=== PATIENT | male | born 1940 | race Caucasian/White ===

== ENCOUNTER 2017-09-20 17:09 | Inpatient (IN) | payer MEDICARE, OTHER ==
[2017-09-20] MEDS ORDERED: ALUMINUM & MAGNESIUM HYDROXIDE 30 ML UD PO ONE ×2 (17:33→20:53)
[2017-09-20] MEDS ORDERED: ASPIRIN TABLET 325 MG TAB PO ONE (17:33)
[2017-09-20] MEDS ORDERED: PANTOPRAZOLE SODIUM IV 40 MG VIAL IV ONE (17:33)
--- NOTE | 2017-09-20 18:02 | RAD ---
EXAM DESCRIPTION: Abdomen Series CLINICAL HISTORY:77 years Male, chest pain Comparison: None FINDINGS: Minimal subsegmental atelectasis or scarring at the left lung base. No focal consolidation. No pleural effusion. No pneumothorax. Cardiac and mediastinal silhouette is unremarkable. No acute osseous abnormality. Soft tissues are unremarkable. Nonobstructive bowel gas pattern. No evidence of free air. IMPRESSION: Minimal subsegmental atelectasis or scarring at left lung base. No focal lung consolidation. Moderate colonic stool. Nonobstructive bowel gas pattern. Electronically signed by: Idris Rubio MD 09/20/2017 6:01 PM CDT
[2017-09-20] MEDS ORDERED: ALUM & MAG HYDROX-SIMETHICONE 30 ML, LIDOCAINE VISCOUS 2% 15 ML PO ONE ×2 (18:20)
[2017-09-20] MEDS ORDERED: LIDOCAINE HCL 2% (MOUTH-THROAT) 15 ML UD ONE ×2 (18:28→18:36)
[2017-09-20] MEDS ORDERED: ALUM & MAG HYDROX-SIMETHICONE 30 ML UD ONE (18:28)
[2017-09-20] MEDS ORDERED: NITROGLYCERIN 0.4 MG 25 EA TAB SL ONE (19:07)
[2017-09-20] MEDS ORDERED: ONDANSETRON INJ 4 MG/2 ML VIAL ONE (19:20)
[2017-09-20] MEDS ORDERED: ONDANSETRON INJ 4 MG/2 ML VIAL IV ONE (19:26)
[2017-09-20] MEDS ORDERED: SODIUM CHLORIDE 0.9% 1000ML 1,000 ML IVS ONE (20:16)
[2017-09-20] MEDS ORDERED: FAMOTIDINE 20 MG TAB PO ONE (20:53)
--- NOTE | 2017-09-20 21:11 | ED.PDOC ---
History of Present Illness - General Chief Complaint: Chest Pain/MS Stated Complaint: chest pain Time Seen by Provider: 09/20/17 17:31 Source: patient Exam Limitations: no limitations - History of Present Illness Initial Comments: the patient is 77-year-old male presenting to the emergency room secondary to the onset of substernal chest pain with radiation down towards the epigastric area. It started approximately an hour prior to arrival. He has had one or 2 episodes in the last week that are similar but this one lasted longer solution to the emergency room. No history of any cardiac problems though he does have hypertension and hypercholesterolemia and he is obese. He has never had any real cardiac stress testing. After the patient was here for about 3 hours I found out the additional information that the patient had been hospitalized 6 or 7 months ago for a severe Salmonella infection. He does not really remember much of the details of that infection was or what form of Salmonella it was or what all it effected but he was in the ICU for an extended period of time. he does not have shortness of breath. It is not worse with any movement. He was initially not nauseated. By the time the patient arrived here the chest pain had resolved. It did recur about 2 hours later and was relieved by throwing up.there was no blood in the vomitus. He has not had any history of any ulcers in the past but he does have a history of reflux. Timing/Duration: 1 hour Severity: moderate Improving Factors: nothing Worsening Factors: nothing Associated Symptoms: chest pain, loss of appetite, malaise, nausea/vomiting Allergies/Adverse Reactions: Allergies NO KNOWN ALLERGY Allergy (Verified 09/20/17 17:15) Review of Systems - Review of Systems Constitutional: States: malaise EENTM: States: no symptoms reported Respiratory: States: no symptoms reported Cardiology: States: chest pain Gastrointestinal/Abdominal: States: abdominal pain, nausea Genitourinary: States: no symptoms reported Musculoskeletal: States: no symptoms reported Skin: States: no symptoms reported Neurological: States: no symptoms reported Endocrine: States: no symptoms reported All other Systems: No Change from Baseline Past Medical History (General) - Patient Medical History Hx Stroke: No Hx of COPD: No Hx Congestive Heart Failure: No Hx Hypertension: Yes Hx Diabetes: No Hx Gastroesophageal Reflux: - divertiulosis Surgical History: other Family Medical History - Family History Father Family History: No Known Physical Exam - Physical Exam General Appearance: Alert, Comfortable, No apparent distress Eye Exam: bilateral normal Ears, Nose, Throat: hearing grossly normal, normal ENT inspection, normal pharynx Neck: full range of motion, supple, normal inspection Respiratory: lungs clear, normal breath sounds, no respiratory distress, no accessory muscle use Cardiovascular/Chest: normal peripheral pulses, regular rate, rhythm, no edema Peripheral Pulses: radial,right: 2+, radial,left: 2+, dorsalis pedis,right: 2+, dorsalis pedis,left: 2+ Gastrointestinal/Abdominal: soft, other - mild epigastric to right upper quadrant discomfort palpation. Rectal Exam: deferred Back Exam: normal inspection, no CVA tenderness, no vertebral tenderness Extremity: normal range of motion, non-tender, normal inspection, no pedal edema , normal capillary refill Neurologic: inductor tester II-XII nml as tested, alert, normal mood/affect, oriented x 3 Skin Exam: normal color Comments: Vital Signs - 24 hr 09/20/17 09/20/17 09/20/17 17:10 18:20 19:10 Temperature 98.6 F Pulse Rate 69 Pulse Rate [ 73 69 68 left brachial] Respiratory 16 18 20 Rate Blood Pressure 144/88 122/83 119/80 [right brachial ] O2 Sat by Pulse 96 97 Oximetry 09/20/17 09/20/17 09/20/17 19:27 19:58 20:10 Temperature Pulse Rate Pulse Rate [ 86 68 70 left brachial] Respiratory 20 14 16 Rate Blood Pressure 114/64 98/64 103/68 [right brachial ] O2 Sat by Pulse 94 L 93 L 94 L Oximetry 09/20/17 21:10 Temperature Pulse Rate Pulse Rate [ 72 left brachial] Respiratory 18 Rate Blood Pressure 126/77 [right brachial ] O2 Sat by Pulse 98 Oximetry Progress - Progress Progress: 09/20/17 21:13 the patient is a 77-year-old male presented to emergency room secondary to substernal chest and epigastric pain. The patient does have risk factors for coronary disease and will be placed in the hospital for a more extended rule out with the first 2 sets of cardiac enzymes being essentially negative. With more observation, this is looking less likely a cardiac source. he did receive an aspirin upon arrival. He does appear to be having acute gastritis and duodenitis occurring. This may be viral in origin, her chronic with a current flare, however given his recent history of a significant salmonella infection, he does bear watching from this standpoint overnight as well. We will plan on doing a blood culture with next set of cardiac enzymes. If his symptoms continue then stool studies may be warranted and we may need to obtain records from his previous treating facility as to what form of salmonella he had and what all sites it had affected at the time to determine further management. For now the patient does not look septic. no antibiotics are being started. He is receiving a small fluid bolus. He is resting comfortably. He has received a dose of Carafate, Protonix and famotidine. He did require 1 dose of Zofran here in the emergency room. Telemetry monitoring has shown no significant arrhythmia. His vital signs are stable. Admitted for further management. - Results/Orders Results/Orders: acute abdominal series fails show any acute pathology. There is some constipation. Initial EKG an EKG repeated while the patient was having chest pain essentially looked the same. Motor normal sinus rhythm. There is some left axis deviation. No acute ST segment changes concerning for ischemia. Corrected QT interval is still within normal limits. Laboratory Tests 09/20/17 09/20/17 09/20/17 17:20 17:20 17:20 WBC 7.3 RBC 4.38 L Hgb 13.6 L Hct 38.9 L MCV 88.8 MCH 31.0 MCHC 35.0 RDW 13.4 Plt Count 292 MPV 8.0 Absolute Neuts (auto) 4.30 Absolute Lymphs (auto) 2.20 Absolute Monos (auto) 0.50 Absolute Eos (auto) 0.30 Absolute Basos (auto) 0.10 Neutrophils % 58.8 Lymphocytes % 29.8 Monocytes % 6.9 Eosinophils % 3.6 Basophils % 0.9 PT 11.6 INR 1.000 PTT (SP) 31.4 D-Dimer, Quantitative 102 Sodium 142 Potassium 4.1 Chloride 106 Carbon Dioxide 27 Anion Gap 13.1 BUN 20 H Creatinine 0.93 BUN/Creatinine Ratio 21.5 H Random Glucose 117 H Serum Osmolality 286.8 Calcium 9.5 Magnesium Total Bilirubin 0.5 AST 34 ALT 29 Alkaline Phosphatase 56 Creatine Kinase 152 CK-MB (CK-2) 3.3 CK-MB (CK-2) % Not Reportable Troponin I < 0.02 B-Natriuretic Peptide 81.6 Serum Total Protein 7.5 Albumin 4.6 Globulin 2.9 Albumin/Globulin Ratio 1.6 Amylase 77 Lipase Urine Color Urine Appearance Urine pH Ur Specific [place] Urine Protein Urine Glucose (UA) Urine Ketones Urine Blood Urine Nitrite Urine Bilirubin Urine Urobilinogen Ur Leukocyte Esterase Urine RBC Urine WBC Ur Epithelial Cells Amorphous Sediment Urine Bacteria 09/20/17 09/20/17 09/20/17 17:20 18:08 19:38 WBC RBC Hgb Hct MCV MCH MCHC RDW Plt Count MPV Absolute Neuts (auto) Absolute Lymphs (auto) Absolute Monos (auto) Absolute Eos (auto) Absolute Basos (auto) Neutrophils % Lymphocytes % Monocytes % Eosinophils % Basophils % PT INR PTT (SP) D-Dimer, Quantitative Sodium Potassium Chloride Carbon Dioxide Anion Gap BUN Creatinine BUN/Creatinine Ratio Random Glucose Serum Osmolality Calcium Magnesium 2.0 Total Bilirubin AST ALT Alkaline Phosphatase Creatine Kinase 137 CK-MB (CK-2) 3.2 CK-MB (CK-2) % Not Reportable Troponin I 0.01 B-Natriuretic Peptide Serum Total Protein Albumin Globulin Albumin/Globulin Ratio Amylase Lipase 48 Urine Color Yellow Urine Appearance Clear Urine pH 5.5 Ur Specific [place] 1.025 Urine Protein Negative Urine Glucose (UA) Negative Urine Ketones Negative Urine Blood Negative Urine Nitrite Negative Urine Bilirubin Negative Urine Urobilinogen 0.2 Ur Leukocyte Esterase Negative Urine RBC 0 Urine WBC 0 Ur Epithelial Cells 0-1 Amorphous Sediment 4+ Urine Bacteria 0 09/20/17 19:38 WBC RBC Hgb Hct MCV MCH MCHC RDW Plt Count MPV Absolute Neuts (auto) Absolute Lymphs (auto) Absolute Monos (auto) Absolute Eos (auto) Absolute Basos (auto) Neutrophils % Lymphocytes % Monocytes % Eosinophils % Basophils % PT INR PTT (SP) D-Dimer, Quantitative < 200 Sodium Potassium Chloride Carbon Dioxide Anion Gap BUN Creatinine BUN/Creatinine Ratio Random Glucose Serum Osmolality Calcium Magnesium Total Bilirubin AST ALT Alkaline Phosphatase Creatine Kinase CK-MB (CK-2) CK-MB (CK-2) % Troponin I B-Natriuretic Peptide Serum Total Protein Albumin Globulin Albumin/Globulin Ratio Amylase Lipase Urine Color Urine Appearance Urine pH Ur Specific [place] Urine Protein Urine Glucose (UA) Urine Ketones Urine Blood Urine Nitrite Urine Bilirubin Urine Urobilinogen Ur Leukocyte Esterase Urine RBC Urine WBC Ur Epithelial Cells Amorphous Sediment Urine Bacteria Departure - Departure Clinical Impression: Vomiting Qualifiers: Vomiting type: unspecified Vomiting Intractability: non-intractable Nausea presence: with nausea Qualified Code(s): R11.2 - Nausea with vomiting, unspecified Chest pain Qualifiers: Chest pain type: other chest pain Qualified Code(s): R07.89 - Other chest pain ; R07.8 - Other chest pain Disposition: Admit Patient Decision To Admit - Decistion To Admit Decision to Admit Reason: Medical Nature Decision to Admit Date: 09/20/17 Decision to Admit Time: 21:19
--- NOTE | 2017-09-20 21:31 | HP ---
SUPERVISING PHYSICIAN: Soy Bazzi MD CHIEF COMPLAINT: Chest pain. HISTORY OF PRESENT ILLNESS: This is a 77-year-old male patient who presented to the Emergency Room one hour after the onset of some substernal chest pain. It radiated down to his epigastric area. He has had several episodes of this in the past couple of weeks, but this got to the point where he felt like he needed to come into the Emergency Room. He has no history of any cardiac problems although he does have hyperlipidemia, hypertension and he is obese. The chest pain resolved in the Emergency Room. Later, information was obtained that he has a history of diverticulitis with a colon resection as well as he also had a salmonella infection approximately 9 months ago that he was in ICU for a week due to complications. He just recently moved to [place] from [place]. In the Emergency Room, his vital signs were stable. His WBCs were 7.3 , hemoglobin 13.6, hematocrit 38.9, platelet count 292. D-dimer less than 200 with PT 11.6, INR 1, PT-T 31.4. Electrolytes were basically within normal limits. His first two sets of cardiac enzymes were negative. BNP 81.6. Amylase 77, lipase 48. Liver enzymes were within normal limits. Urinalysis was within normal limits. Abdominal x-ray shows minimal substernal atelectasis or scarring at left lung base and no focal lung consolidation with moderate colonic stool. In the Emergency Room, he was given Maalox, a GI slider, Pepcid , Protonix as well as some fluids. His EKG showed normal sinus rhythm. I was called for admission. PAST MEDICAL HISTORY: 1. Hypertension. 2. Hyperlipidemia. 3. Gastroesophageal reflux disease. 4. Salmonella infection approximately 9 months ago due to eating at a restaurant in [place]. 5. Diverticulitis. PAST SURGICAL HISTORY: 1. Colon resection with 2 feet of colon removed due to diverticulitis. 2. Right ankle surgery. 3. Repair of hernia with mesh x2. OUTPATIENT MEDICATIONS: Awaiting verification in the EMR. ALLERGIES: NO KNOWN DRUG ALLERGIES. FAMILY HISTORY: Negative. SOCIAL HISTORY: He just recently moved to [place] from [place]. PCP in [place], [place], is Dr. Kraft. He is . He denies any tobacco, ETOH or illicit drug use. REVIEW OF SYSTEMS: GENERAL: Negative for fever, fatigue or weight changes. HEENT: Negative for sinus symptoms, ear pain, vision changes or sore throat. RESPIRATORY: Negative for wheezing, coughing or shortness of breath. CARDIAC: Positive for chest pain. Negative for palpitations or tachycardia. GASTROINTESTINAL: Positive for abdominal pain, nausea, vomiting x1 in the Emergency Room. Negative for diarrhea or constipation. GENITOURINARY: Negative for hematuria, dysuria or polyuria. MUSCULOSKELETAL: Negative for back pain, arthralgias, myalgias. NEUROLOGIC: Negative for headache, dizziness or seizures. SKIN: Negative for rashes or lesions. PHYSICAL EXAMINATION: VITAL SIGNS: Temperature 98.6. Heart rate 72. Blood pressure 126/77. Respiratory rate 18. O2 saturation 93% on 2 liters nasal cannula. GENERAL: This is a 77-year-old male lying in his hospital bed. He is no acute distress. HEENT: Normocephalic, atraumatic. Pupils are equal and reactive. Oropharynx is clear. NECK: Supple without mass. RESPIRATORY: Essentially clear to auscultation bilaterally. CHEST: There is equal rise and fall of the chest with inspiration and expiration. CARDIOVASCULAR: Regular rate and rhythm. Sinus rhythm on the client development consultant. GASTROINTESTINAL: Abdomen is soft, nondistended. Very mildly tender to the epigastric to right upper quadrant. Bowel sounds are positive. EXTREMITIES: No cyanosis, clubbing or edema. NEUROLOGIC: Awake, alert and oriented times three. Cranial nerves II-XII are grossly intact. SKIN: Warm and dry. LABORATORY: Labs and films are as per history of present illness. IMPRESSION: 1. Chest pain, rule out myocardial infarction. 2. Gastritis. 3. History of salmonella infection approximately 9 months ago. 4. Hyperlipidemia. 5. Gastroesophageal reflux disease. PLAN: We will place the patient in observation. I have initiated the chest pain guidelines. We will have a proton pump inhibitor for ulcer prophylaxis, Lovenox for DVT prophylaxis, Zofran as an antiemetic. With his next set of cardiac enzymes, I will draw salmonella titer as well as some blood cultures. He will be unable to get a local primary care physician until after the first of the year due to his insurance, but he has agreed to see one of our local physicians as a close followup to his hospital stay. We will continue to monitor the patient closely and follow as needed. Dr. Bazzi is the collaborating physician and available for consultation. #[id number] [facility]
[2017-09-20] MEDS ORDERED: ACETAMINOPHEN 325 MG TAB PO PRN (21:51)
[2017-09-20] MEDS ORDERED: MORPHINE SULFATE INJ 10 MG/ML VIAL IV PRN (21:51)
[2017-09-20] MEDS ORDERED: SODIUM CHLORIDE 0.9% (FLUSH) 10 ML SYG IV PRN (21:51)
[2017-09-20] MEDS ORDERED: NITROGLYCERIN 0.4 MG 25 EA TAB SL PRN (21:51)
[2017-09-20] MEDS ORDERED: ONDANSETRON INJ 4 MG/2 ML VIAL IV PRN (21:56)
[2017-09-20] MEDS: ENOXAPARIN SODIUM 40 MG/0.4 ML SYG SUBCU SCH (23:41)
[2017-09-20] MEDS: IV SET AND CAP CHANGE INJ INJ SCH (23:42)
[2017-09-21] MEDS ORDERED: SODIUM CHLORIDE 0.45% 1000ML 500 ML IVS ONE (01:43)
[2017-09-21] MEDS ORDERED: SODIUM CHLORIDE 0.45% 1000ML 1,000 ML IVS ONE (01:44)
[2017-09-21] MEDS: PANTOPRAZOLE SODIUM IV 40 MG VIAL IV SCH (06:08)
[2017-09-21] MEDS ORDERED: DEXAMETHASONE INJ 10 MG/ML VIAL ONE (07:00)
[2017-09-21] MEDS ORDERED: SODIUM CHLORIDE 0.9% 50 ML VIAL ONE (07:00)
[2017-09-21] MEDS ORDERED: raNITIdine HCL INJ 25 MG/ML VIAL ONE (07:00)
[2017-09-21] MEDS ORDERED: GLYCOPYRROLATE 0.2 MG/ML VIAL ONE (07:00)
[2017-09-21] MEDS ORDERED: METOCLOPRAMIDE HCL INJ 10 MG/2 ML VIAL ONE (07:00)
[2017-09-21] MEDS ORDERED: PROPOFOL 200 MG/20 ML VIAL IV ONE (07:00)
[2017-09-21] MEDS ORDERED: ePHEDrine SULF 50 MG/ML ONE (07:00)
[2017-09-21] MEDS ORDERED: LIDOCAINE 1% 10 ML VIAL INJ ONE (07:00)
[2017-09-21] MEDS: SODIUM CHLORIDE 0.9% (FLUSH) 10 ML SYG IV SCH ×2 (10:04→20:43)
--- NOTE | 2017-09-21 11:31 | PN ---
SUPERVISING PHYSICIAN: Soy Bazzi MD DATE: 09/21/17 SUBJECTIVE: The patient is lying in bed. He is sleeping. He awakens easily. He complains of general malaise and just not feeling well. He has had no nausea , vomiting, diarrhea or chest pain overnight. We discussed his lab results and plan of care. OBJECTIVE: VITAL SIGNS: Afebrile. Heart rate 95. Blood pressure 102/61. Respiratory rate 18. O2 saturation 95% on 2 liters nasal cannula. RESPIRATORY: Essentially clear to auscultation bilaterally. CARDIAC: Regular rate and rhythm. GASTROINTESTINAL: Abdomen is soft, nondistended. Mildly tender to the epigastric and left upper quadrant area. There is no organomegaly. EXTREMITIES: No cyanosis, clubbing or edema. NEUROLOGIC: Awake, alert and oriented times three. LABORATORY: WBC 10.2, but he does have a left shift with neutrophils at 88.8%. Hemoglobin 13, hematocrit 37. Sodium 139, potassium 3.8, chloride 103, carbon dioxide 27, BUN 22, creatinine 0.9. Glucose 136, calcium 8.7. Total bilirubin 2.4 and was 0.5 yesterday. AST 362 and was 34 yesterday. ALT 297 and was 29 yesterday. Alkaline phosphatase is 87. Serial cardiac enzymes were negative. Triglycerides 116, cholesterol 116, LDL 61.3, HDL 34. Salmonella titer is pending. Preliminary blood cultures are negative to date. All other labs and films have been reviewed via the EMR. ASSESSMENT: 1. Chest pain, rule out myocardial infarction. His serial cardiac enzymes have been negative, but he has never had a cardiac workup that includes and echocardiogram or a stress test. 2. Elevated liver function tests. His liver function tests were normal on admission yesterday. 3. Elevated bilirubin of 2.5 with a normal bilirubin yesterday. 4. Gastritis. 5. History of salmonella infection approximately 9 months ago requiring ICU admission. 6. Hyperlipidemia. 7. Gastroesophageal reflux disease. PLAN: We will continue present supportive care. I have made him NPO and ordered an abdominal sonogram today and we will get that report initially to evaluate his elevated liver functions. Depending on the results, we may need further need further testing or a consult with either Dr. Medeiros or GI tomorrow. Also depending on what the sonogram shows, we may need to change him to a full admission. Again, I am quite concerned that we have close followup on this patient as his primary care physician is in [place] and due to his insurance, he will be unable to change to a local primary care physician until after the first of the year. He has agreed to see one of our local physicians as followup and Dr. Bazzi has agreed to see him in clinic for his hospital followup. I have ordered lab for in the morning. We will monitor his cultures and make sure he has a followup appointment with Dr. Bazzi. We will continue to monitor the patient closely and treat appropriately. #[id number] #[id number] [facility]
[2017-09-21] MEDS ORDERED: MAGNESIUM HYDROXIDE 30 ML UD PO ONE (13:00)
--- NOTE | 2017-09-21 14:54 | US ---
EXAM DESCRIPTION: Abdomen sonogram, complete CLINICAL HISTORY: Elevated liver function tests COMPARISON: [None.] FINDINGS: Gallbladder demonstrates multiple 1 cm gallstones layering dependently in the gallbladder. No positive sonographic Garcia sign . Gallbladder wall thickness 3 mm Common bile duct measures 5-6 mm mm in the francesca hepatis. Liver is mildly enlarged measuring 17.3 cm craniocaudal in the midclavicular line. Mild diffuse increased echotexture consistent with fatty infiltration. No focal abnormality. Spleen normal in size and echotexture Pancreas is not well seen. Visualized abdominal aorta and inferior vena cava are normal Right kidney and left kidney are normal in size and echotexture. No hydronephrosis, nephrolithiasis or renal mass lesion IMPRESSION: Mild hepatomegaly and diffuse fatty infiltration. No focal abnormality Gallstones in the gallbladder. No evidence of acute cholecystitis Electronically signed by: Soy Farrar MD 09/21/2017 2:53 PM CDT
[2017-09-21] MEDS ORDERED: levoFLOXacin 500MG IV 100 ML IVPB ONE (16:19)
[2017-09-21] MEDS: LISINOPRIL 10 MG TAB PO SCH (16:25)
[2017-09-21] MEDS: levoFLOXacin 500MG IV 500 MG in PREMIX BAG 1 BAG IVPB SCH (16:26)
[2017-09-21] MEDS: ATORVASTATIN 10 MG TAB PO SCH (20:43)
--- NOTE | 2017-09-21 20:43 | CONS ---
DATE OF CONSULTATION: 09/21/17 HISTORY OF PRESENT ILLNESS: The patient is a 77 year-old male patient who was admitted through the Emergency Room after the onset of substernal chest pain which resolved after taking a Nitroglycerin. He has had no history of cardiac disease but does have hypertension, hyperlipidemia and is obese. He has a previous episode of like episode approximately 4 years ago which was not diagnosed. He was hospitalized with ICU care 9 months ago for Salmonella. He has no history of hepatitis or jaundice in the past. He does not have a history of fatty food intolerance. PAST MEDICAL HISTORY: 1. Hypertension. 2. Hyperlipidemia. 3. Gastroesophageal reflux disease. 4. Salmonella. 5. Diverticulitis. PAST SURGICAL HISTORY: 1. Status post colon resection for diverticulitis. 2. Status post hernia repair with mesh. 3. Right ankle surgery. CURRENT MEDICATIONS: ALLERGIES: NO KNOWN DRUG ALLERGIES. FAMILY HISTORY: Noncontributory. SOCIAL HISTORY: The patient does not use tobacco or alcohol. He is . 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 REVIEW OF SYSTEMS: No fever or chills. No change in bowel habits. Has had no diarrhea or blood per rectum since the Salmonella. Denies problems with voiding and has no history of chest pain. PHYSICAL EXAMINATION: VITAL SIGNS: He is afebrile and normotensive. HEENT: Reveals the sclera to be nonicteric. Mucous membranes are moist. NECK: Without adenopathy. BACK: Without CVA tenderness. CHEST: He has equal breath sounds bilaterally. HEART: Regular rate and rhythm. ABDOMEN: Soft. There is mild tenderness in the right upper quadrant. There is a well healed midline surgical scar. RECTAL: Examination is deferred. EXTREMITIES: Without clubbing, cyanosis or edema. LABORATORY: Elevated liver function tests today with total bilirubin 2.4 with AST and ALT 362 and 297. These were normal at the time of admission. He had a normal amylase and lipase on admission. Potassium is 3.8, creatinine 0.90. Hemoglobin 13, white count 10.2, platelet count 255,000, 88% neutrophils. Coagulation studies are within normal limits. Urinalysis is clear other than a specific gravity of 1.025. He had an ultrasound today which revealed gallstones and a upper limits of normal bile duct without stones, and changes in his liver echogenicity consistent with fatty infiltration. IMPRESSION: 1. Symptomatic cholelithiasis with elevated bilirubin and elevated liver function testing consistent with choledocholithiasis. 2. History of Salmonella. 3. History of hyperlipidemia. 4. Hypertension. 5. Negative cardiac workup. 6. History of mesh implantation. PLAN: To keep the patient NPO. Begin Levaquin. Recheck lab in the morning and if his liver function tests have returned more toward normal or stayed the same, will consider proceeding with cholecystectomy laparoscopically tomorrow with placing the ports above the mesh. The risks, benefits, and alternatives to laparoscopic cholecystectomy were discussed and his questions were answered. #[id number] [facility]
[2017-09-21] MEDS: ENOXAPARIN SODIUM 40 MG/0.4 ML SYG SUBCU SCH (21:12)
[2017-09-22] MEDS: PANTOPRAZOLE SODIUM IV 40 MG VIAL IV SCH (06:00)
[2017-09-22] MEDS: SODIUM CHLORIDE 0.9% (FLUSH) 10 ML SYG IV SCH ×2 (09:41→21:43)
[2017-09-22] MEDS: CITALOPRAM HBR 20 MG TAB PO SCH (09:45)
[2017-09-22] MEDS: LISINOPRIL 10 MG TAB PO SCH (09:45)
[2017-09-22] MEDS ORDERED: MIDAZOLAM INJ 2 MG/2 ML VIAL ONE (11:32)
[2017-09-22] MEDS ORDERED: ROCURONIUM BROMIDE 10 MG/ML VIAL ONE ×2 (11:32→14:11)
[2017-09-22] MEDS ORDERED: fentaNYL CITRATE INJ 50 MCG/ML AMP ONE (11:32)
[2017-09-22] MEDS ORDERED: ELECTROLYTE-A 1,000 ML IVS ONE ×2 (11:42→12:55)
[2017-09-22] MEDS ORDERED: BUPIVACAINE 0.25% W/EPI 50 ML VIAL INJ ONE (11:45)
[2017-09-22] MEDS ORDERED: HEPARIN SODIUM (PORCINE) 10,000 UNITS/ML VIAL ONE (11:45)
[2017-09-22] MEDS ORDERED: HYDROmorphone HCL INJ 2 MG/ML VIAL ONE (13:30)
[2017-09-22] MEDS ORDERED: GLUCAGON INJ 1 MG VIAL ONE (13:52)
[2017-09-22] MEDS ORDERED: SUGAMMADEX SODIUM 200 MG/2 ML VIAL IV ONE (14:11)
[2017-09-22] MEDS ORDERED: HYDROmorphone HCL INJ 2 MG/ML VIAL IV PRN (14:51)
[2017-09-22] MEDS ORDERED: LEVALBUTEROL NEBS 1.25 MG/3 ML VIAL NEB ONE (15:05)
[2017-09-22] MEDS ORDERED: levoFLOXacin 500MG IV 100 ML IVPB ONE (16:02)
[2017-09-22] MEDS ORDERED: ALBUTEROL SULFATE 2.5 MG/3 ML VIAL NEB PRN (16:02)
[2017-09-22] MEDS: ALBUTEROL SULFATE 2.5 MG/3 ML VIAL NEB SCH ×2 (16:10→19:35)
--- NOTE | 2017-09-22 16:13 | RAD ---
EXAM DESCRIPTION: Chest,1 View CLINICAL HISTORY: Low Spo2 s/p op Digna COMPARISON: None available TECHNIQUE: AP portable chest FINDINGS: Minimal scarring or atelectasis is observed in the left lower chest. The right chest is clear. The heart is within range of normal. No pleural fluid is seen. IMPRESSION: Minimal scarring or atelectasis is observed in the left lower chest. Electronically signed by: Hermelindo Jain MD 09/22/2017 4:12 PM CDT
[2017-09-22] MEDS: levoFLOXacin 500MG IV 500 MG in PREMIX BAG 1 BAG IVPB SCH (16:18)
--- NOTE | 2017-09-22 17:53 | OP ---
DATE OF PROCEDURE: 09/22/17 PREOPERATIVE DIAGNOSIS: 1. Symptomatic cholelithiasis. 2. Fatty infiltration of the liver. POSTOPERATIVE DIAGNOSIS: 1. Symptomatic cholelithiasis. 2. Fatty infiltration of the liver. 3. Chronic cholecystitis. 4. Possible choledocholithiasis. PROCEDURE: Laparoscopic cholecystectomy with intraoperative cholangiogram using fluoroscopy. SURGEON: Aryan Medeiros M.D. MATERIALS MANAGER: NONE. ANESTHESIA: General endotracheal anesthesia and local infiltration of 0.25% Marcaine with epinephrine. INDICATION FOR SURGERY: The patient is a 77 year-old male who was admitted through the Emergency Room 2 days ago with chest pain, nausea and vomiting. The cardiac workup was negative. His bilirubin went up to 2.4 yesterday. Ultrasound was obtained which showed multiple tones in the g blood with a normal ductal system consistent with fatty infiltration of the liver. After the risks, benefits, and alternatives to the procedure were discussed and accepted, and this morning the patient's liver functions all improved, he was brought to the Surgical Suite today for cholecystectomy with cholangiography. FINDINGS AT TIME OF PROCEDURE: There were multiple dense adhesions in the midline from his previous hernia repair which made placement of the supraumbilical port to be somewhat difficult. There were also multiple adhesions to the gallbladder. The gallbladder wall was mildly thickened. There were multiple stones in the gallbladder. Cholangiography initially showed only a small trickle of contrast going through the duct with a meniscus at the bottom. The upper biliary tree was within normal limits. The post glucagon cholangiograms revealed only a slightly greater flow of bile but no obvious meniscus at that time. No other pathology was identified, except for the significant adhesions. DESCRIPTION OF PROCEDURE: After adequate general endotracheal anesthesia was obtained, the patient was prepped and draped in the usual sterile manner. At this time a surgical time out was taken. Then the area above the top of his midline incision was infiltrated with local anesthesia. A vertical incision was made and dissection was carried down through the skin and subcutaneous tissue to the fascia. A small incision was made in the fascia after traction sutures were placed and then using blunt dissection, I was unable to enter the abdominal cavity despite some significant attempts. So at this point in the mid subcostal area, a 5 mm port was placed under direction vision. The trochar was held in place with a 5 mm port. CO2 was then insufflated and the laparoscope was introduced. The lateral port site was then placed and then the substernal port were all placed under direct vision. After this was done there was some dissection of the adhesions and eventually we were able to place the 12 mm port in the midline. When this was done, the gallbladder was grasped, retracted anteriorly and laterally, and the adhesions to the gallbladder were taken down using blunt dissection and some electrocautery. When this was done, the neck of the gallbladder was retracted laterally. The triangle of Calot was explored. The cystic duct and the cystic artery were identified and isolated. The cystic duct was hemoclipped once proximally and the cystic artery was hemoclipped twice proximally. A small incision was made and the cystic duct cholangiogram catheter was introduced through a separate stab wound in the right upper quadrant, introduced into the cystic duct and clipped in place. Cholangiograms were taken using fluoroscopy which revealed the meniscus with poor flow. So after 1 mg of Glucagon was given after 2 minutes, we again attempted to perform a cholangiogram but there was only slightly more drainage of the contrast into the duodenum. So at this point, the catheter was removed. The cystic duct was hemoclipped 3 times distally and divided between the hemoclips. The cystic artery was hemoclipped twice proximally and divided. The gallbladder was then dissected free from the gallbladder bed of the liver using electrocautery. It was placed in an EndoCatch bag and removed from the supraumbilical port site under direct vision in the usual manner without opening the bag. When this was done, the port was replaced. The subhepatic space and subphrenic space were irrigated copiously with saline. There was some oozing in the gallbladder bed of the liver. This was controlled with electrocautery. The francesca hepatis was inspected. There was no bile leak or bleeding identified. The subphrenic space on the right was irrigated copiously with saline and the effluent was noted to be clear. There was still a tiny amount of oozing from the gallbladder bed, so at this point a 15 Serbian round J- P drain was introduced through the lateral port site and introduced into the subhepatic space and sutured in place with a #3-0 nylon ligature. When this was done, the remaining upper ports were removed under direct vision. Hemostasis was noted to be adequate. So at this point the CO2, the laparoscope and the supraumbilical port were removed. The supraumbilical port site fascia was approximated with 2 [id number] #0 Vicryl sutures vertically. When this was done, the subcutaneous tissue was irrigated with saline. Skin edges were approximated with 4-0 Vicryl subcuticular sutures, benzoin and Steri- Strips. Sterile dressings were applied. The patient was awakened and taken to the Recovery Room. The J-P drain was placed to closed grenade drainage. Estimated blood loss was 150 mL. All sponge, needle and instrument counts were correct. #[id number] [facility]
[2017-09-22] MEDS: DEX 5% W/NACL 0.45% 1000ML 1,000 ML IVS PRN (18:56)
[2017-09-22] MEDS: ATORVASTATIN 10 MG TAB PO SCH (20:44)
[2017-09-22] MEDS: ENOXAPARIN SODIUM 40 MG/0.4 ML SYG SUBCU SCH (22:35)
--- NOTE | 2017-09-22 23:27 | PN ---
DATE: 09/22/17 SUPERVISING PHYSICIAN: Soy Bazzi M.D. SUBJECTIVE: The patient was seen in postoperative condition after laparoscopic cholecystectomy this afternoon. He was in stable condition. He was alert and oriented times three. He was showing some desaturations at rest and it is noted that he wears CPAP at night. He continues to be somewhat sleepy postoperatively, therefore will utilize CPAP in his postoperative phase and continue tonight. OBJECTIVE: VITAL SIGNS: Temperature 94, blood pressure 12/73, respirations 16, satting 88% on a face tent 10 liters on 45% and up to 91 to 94% on nasal cannula at rest on 3 liters. I's and O's show a negative 450 with 500 in, 950 out. Weight is 107.5. He has had 1 bowel movement. GENERAL: The patient is resting comfortably with a CPAP mask in place. He is alert. He appears to be without any acute distress. CHEST: Lung sounds were clear, just diminished bilaterally towards the bases. HEART: Regular rate and rhythm. ABDOMEN: Obese but soft with some tenderness noted around the surgical sites. Bowel sounds were present. EXTREMITIES: No clubbing, cyanosis or edema. NEUROLOGIC: He is alert and oriented times three. LABORATORY: This morning his white count was down to 6,000, hemoglobin 12.5, hematocrit 35.6, platelet count 213,000. Chemistries showed normal electrolytes , BUN 16, creatinine 0.86, magnesium 2.1. Bilirubin was down to 1.5. AST was coming down, it is 145. ALT was down to 210, alkaline phosphatase was normal. Troponin was less than 0.02. Amylase and lipase were both normal. Salmonella species antibody was pending. MICROBIOLOGY: Blood cultures remain negative at 24 hours. RADIOLOGY: Postoperative chest x-ray single view chest today showed minimal scarring or atelectasis observed in the left lower chest. ASSESSMENT: 1. Symptomatic cholelithiasis with cholecystitis status post day zero for a laparoscopic cholecystectomy. 2. Fatty infiltration of the liver with a liver biopsy. 3. Concerns for choledocholithiasis as noted on intraoperative cholangiogram. 4. Chest pains secondary to #1 with cardiac enzymes being negative and cardiac workup showing no acute myocardial infarction with EKG showing no acute changes. 5. Questionable gastritis. 6. History of Salmonella infection approximately 9 months previously having been in ICU with Salmonella antibody pending with no signs of current active disease process. 7. Hyperlipidemia. 8. Gastroesophageal reflux disease with questionable gastritis. PLAN: The patient is postoperative day zero today. Will continue to follow the patient as he recovers from his laparoscopic cholecystectomy. Will defer postoperative surgical management to Dr. Medeiros. Dr. Medeiros has a pending consultation with GI specialist in [place] in regards to the questionable choledocholithiasis. Will await those findings tomorrow. The patient once able to be discharged will need close clinical followup. As he is out of state and living in the area currently he has agreed to see Dr. Bazzi in followup as well as Dr. Medeiros. Until then, will continue to monitor and treat appropriately. #[id number] [facility]
[2017-09-23] MEDS: DEX 5% W/NACL 0.45% 1000ML 1,000 ML IVS PRN ×2 (03:01→12:51)
[2017-09-23] MEDS: PANTOPRAZOLE SODIUM IV 40 MG VIAL IV SCH (06:33)
[2017-09-23] MEDS: ALBUTEROL SULFATE 2.5 MG/3 ML VIAL NEB SCH ×4 (08:06→20:00)
[2017-09-23] MEDS ORDERED: HYDROcodone 5MG/APAP 325MG 1 EA TAB PO PRN (08:15)
[2017-09-23] MEDS: LISINOPRIL 10 MG TAB PO SCH (09:38)
[2017-09-23] MEDS: SODIUM CHLORIDE 0.9% (FLUSH) 10 ML SYG IV SCH ×2 (09:38→20:43)
[2017-09-23] MEDS: CITALOPRAM HBR 20 MG TAB PO SCH (09:42)
--- NOTE | 2017-09-23 12:09 | PCM.CORE ---
Physician DVT/VTE - Nurse DVT Assessment & Total Each Risk Factor Represents 3 Points: Age over 75 years Each Risk Factor Represents 2 Points: Major Surgery >45 minutes Each Risk Factor is 1 Point: Obesity (BMI >25) DVT Assessment Score: 6 - 5 or more Very High Risk Treatments: Early Ambulation *, Sequential Compression Device Pharmacological: Enoxaparin 40mg SQ Daily
[2017-09-23] MEDS ORDERED: levoFLOXacin 500MG IV 100 ML IVPB ONE (15:49)
[2017-09-23] MEDS: levoFLOXacin 500MG IV 500 MG in PREMIX BAG 1 BAG IVPB SCH (16:01)
[2017-09-23] MEDS: NABUMETONE 750 MG PO SCH (20:42)
[2017-09-23] MEDS: ATORVASTATIN 10 MG TAB PO SCH (20:42)
[2017-09-23] MEDS: IV SET AND CAP CHANGE INJ INJ SCH (20:43)
--- NOTE | 2017-09-23 21:06 | PN ---
DATE: 09/23/17 SUPERVISING PHYSICIAN: Soy Bazzi M.D. SUBJECTIVE: The patient has been tolerating clear liquids. He has been up ambulating with no complications. His J-P drain continues to drain sanguinous fluid. He utilized CPAP last night and has maintained good O2 saturations. OBJECTIVE: VITAL SIGNS: He remains afebrile. Temperature 97.6, pulse 8, blood pressure 128/72, respirations 16, satting 93% on room air. I's and O's show a positive balance of 130 with 1580 in, 1450 out. Weight is 108.2 kg. CHEST: Lungs were clear to auscultation, just slightly diminished towards the bases with no rhonchi or wheezing noted. HEART: Regular rate and rhythm. ABDOMEN: Obese but soft. Tender over the surgical sites. Bowel sounds are present and normal sounding. EXTREMITIES: No clubbing, cyanosis or edema. NEUROLOGIC: He is alert and oriented times three. LABORATORY: CBC shows white count 9,200, hemoglobin 11.9, hematocrit 33.9, platelet count 233,000. Differential shows a resolving left shift. Chemistries show normal electrolytes with potassium 3.9, BUN 17, creatinine 0.69. Bilirubin now has normalized to 0.7. AST continues to return to baseline as well as alkaline phosphatase with AST at 123, ALT 195. Lipase 21. Salmonella subspecies antibody is still pending. MICROBIOLOGY: Blood cultures show negative at 48 hours. RADIOLOGY: No additional radiographic studies. ASSESSMENT: 1. Symptomatic cholelithiasis with chronic cholecystitis status post day zero for a laparoscopic cholecystectomy. 2. Fatty infiltration of the liver with a liver biopsy. 3. Concerns for choledocholithiasis as noted on intraoperative cholangiogram, managed by Dr. Medeiros. 4. Chest pains secondary to #1 with cardiac enzymes and cardiac workup being negative. 5. Concern for questionable gastritis. 6. History of Salmonella infection approximately 9 months previously having been in ICU with Salmonella antibody pending with no signs of current active disease process. 7. Hyperlipidemia. 8. Gastroesophageal reflux disease with questionable gastritis. PLAN: Will continue to follow the patient and defer surgical management and postoperative management to Dr. Medeiros. He has been advanced on his diet today. Anticipate hopefully being able to discharge tomorrow. Again, I have not heard from Dr. Medeiros in regards to his consultation with GI specialist in regards to the concern for the choledocholithiasis. Will continue to followup with Dr. Medeiros in regards to this and hopefully be able to discharge tomorrow. Until then , continue to monitor and treat appropriately. Again, once the patient is discharged he has agreed that he would see Dr. Bazzi in followup as well as Dr. Medeiros. #[id number] [facility]
[2017-09-23] MEDS ORDERED: TEMAZEPAM 15 MG CAP PO PRN (22:03)
[2017-09-23] MEDS: ENOXAPARIN SODIUM 40 MG/0.4 ML SYG SUBCU SCH (22:17)
[2017-09-24] MEDS: PANTOPRAZOLE SODIUM IV 40 MG VIAL IV SCH (05:57)
[2017-09-24] MEDS: DEX 5% W/NACL 0.45% 1000ML 1,000 ML IVS PRN (06:01)
[2017-09-24] MEDS: LISINOPRIL 10 MG TAB PO SCH (09:16)
[2017-09-24] MEDS: CITALOPRAM HBR 20 MG TAB PO SCH (09:16)
[2017-09-24] MEDS: ALBUTEROL SULFATE 2.5 MG/3 ML VIAL NEB SCH (09:17)
[2017-09-24] MEDS: NABUMETONE 750 MG PO SCH (09:18)
[2017-09-24] MEDS: SODIUM CHLORIDE 0.9% (FLUSH) 10 ML SYG IV SCH (10:30)
[2017-09-24 10:45] VITALS: BP 118/49; TEMP 98.6; O2SAT 94
--- NOTE | 2017-09-25 11:49 | DS ---
SUPERVISING PHYSICIAN: Soy Bazzi M.D. DISCHARGE DIAGNOSIS: 1. Symptomatic cholelithiasis with chronic cholecystitis status postoperative day 1 for a laparoscopic cholecystectomy performed by Dr. Aryan Medeiros, general surgeon. 2. Fatty infiltration of the liver with a previous liver biopsy. 3. Concerns for choledocholithiasis as noted on intraoperative cholangiogram, managed by Dr. Medeiros. 4. Chest pains on admission secondary to #1 with cardiac enzymes and cardiac workup being negative. 5. Concern for questionable gastritis. 6. History of Salmonella infection approximately 9 months ago having been in ICU with Salmonella. There is a Salmonella antibody pending with no signs of current active disease. 7. Hyperlipidemia. 8. Hypertension. 9. Gastroesophageal reflux disease. HISTORY OF PRESENT ILLNESS: This is a 77-year-old male patient who presented to the Emergency Room due to a sudden onset of substernal chest pain. It radiated down to the epigastric area. He had had several episodes such as this in the past couple of weeks, but they were over quickly. The attack he had on the date of admission was so bad that he felt he had to come into the Emergency Room. He has no history of any cardiac issues although he has hyperlipidemia, hypertension and he is obese. The chest pain resolved in the Emergency Room. While still in the Emergency Room but some time later, it was revealed that he had had a fairly significant Salmonella infection approximately 9 months ago in which he spent about a week in ICU. He had obtained it at a restaurant in [place]. He just recently moved to [place] from the [facility]. In the Emergency Room, his vital signs were stable. His WBCs were 7.3, hemoglobin 13.6 , hematocrit 38.9, platelet count 292. D-dimer less than 200. Electrolytes were basically within normal limits. His coags were basically within normal limits and his initial cardiac enzymes were negative. Amylase 77, lipase 48. Liver enzymes were within normal limits on date of admission. His abdominal x- ray showed some constipation and substernal atelectasis or scarring at left lung base but no focal lung consolidation. He was given Maalox in the Emergency Room, a GI slider, Pepcid, Protonix as well as some fluids. His EKG showed normal sinus rhythm. He was placed in Observation in the hospital. HOSPITAL COURSE: The following morning after his admission, his cardiac enzymes were negative and his WBCs were 10.3 with a stable hemoglobin and hematocrit of 13 and 37. His neutrophils did jump to 88.8% and his chemistries were basically within normal limits with the exception of his bilirubin jumped from 0.5 to 2.4. His AST went from 34 to 362, ALT from 29 to 297. An abdominal ultrasound was obtained and showed mild hepatomegaly with a few fatty infiltration with no focal abnormalities, gallstones in the gallbladder and no evidence of acute cholecystitis. Dr. Medeiros was consulted. The patient was set up for surgery the next morning. Dr. Medeiros did a cholecystectomy. Intraoperatively he had some problems in that he previously had 2 hernia repairs with mesh and there was some difficulty with the mesh interfering with the surgery,so it was decided that the patient would remain as an inpatient. He did have some low O2 saturations post operatively. He is supposed to wear CPAP at night but does not wear it due to an ill-fitting mask. Hospital CPAP was utilized overnight. His labs and vital signs remained stable. Dr. Medeiros removed his drain this morning. He is tolerating his diet without any problems. He will be discharged home today as per recommendations by Dr. Medeiros. DISCHARGE PLAN: The patient will be discharged home in stable condition. His diet is as per Dr. Medeiros's postoperative instructions. He does have an appointment with Dr. Medeiros on the for postoperative followup. Due to his insurance, he has been unable to change to a local primary care physician until the first of the year. He has agreed to see Dr. Bazzi at [facility] for a hospital followup. At that time, we will need to check the Salmonella titre. He will need to be scheduled for a sleep study as he has CPAP and does not use it due to the ill-fitting mask. He would benefit from a new sleep study. It may be beneficial at some point for him to establish care with a GI doctor in this area due to his fatty liver disease. I will discharge him on 7 additional days of Levaquin. He is to follow with Dr. Medeiros. Return to the hospital for ay further complications or problems. He has an appointment with Dr. Bazzi for followup on 09/30/17 at 2:00 PM. DISCHARGE MEDICATIONS: 1. Atorvastatin. 2. Omeprazole. 3. Lisinopril. 4. Celexa. 5. Nabumetone. 6. Hydrocodone. 7. Levaquin. #[id number] and [id number] [facility]
== END 2017-09-24 12:55 | disposition home or self-care (01) | DRG 419 ==
LOC: ER 17:09 → MS 21:29 → OBSVTOIN 09-21 16:45
PROVIDERS: ADMIT Nurse Practitioner Acute Care; ATTEND Nurse Practitioner Acute Care
PROC: 0FB14ZX Excision of Right Lobe Liver, Percutaneous Endoscopic Approach, Diagnostic (ICD-10-PCS; 2017-09-22)
PROC: 0FT44ZZ Resection of Gallbladder, Percutaneous Endoscopic Approach (ICD-10-PCS; principal; 2017-09-22 12:06)
DX: K80.64 Calculus of gallbladder and bile duct with chronic cholecystitis without obstruction (principal); R09.02 Hypoxemia; I10 Essential (primary) hypertension; E78.5 Hyperlipidemia, unspecified; K21.9 Gastro-esophageal reflux disease without esophagitis; K76.0 Fatty (change of) liver, not elsewhere classified; K59.00 Constipation, unspecified; K29.00 Acute gastritis without bleeding; E66.9 Obesity, unspecified; Z86.19 Personal history of other infectious and parasitic diseases; Z90.49 Acquired absence of other specified parts of digestive tract; G47.30 Sleep apnea, unspecified

== ENCOUNTER → 2018-10-12 | Outpatient (CLI) | payer MEDICARE, OTHER | LOC: GMAM 14:13 | PROVIDERS: ATTEND Family Medicine | DX: Z12.5 Encounter for screening for malignant neoplasm of prostate (principal); J06.9 Acute upper respiratory infection, unspecified; J02.9 Acute pharyngitis, unspecified ==

== ENCOUNTER → 2019-08-25 | Outpatient (CLI) | payer MEDICARE, OTHER | LOC: GMAM 11:42 | PROVIDERS: ATTEND Family Medicine | DX: E53.8 Deficiency of other specified B group vitamins (principal); E55.9 Vitamin D deficiency, unspecified; I10 Essential (primary) hypertension; R73.09 Other abnormal glucose; E78.2 Mixed hyperlipidemia ==

== ENCOUNTER → 2019-12-25 | Outpatient (CLI) | payer MEDICARE, OTHER | LOC: GMALS 10:57 | PROVIDERS: ATTEND Nurse Practitioner Acute Care | DX: E53.8 Deficiency of other specified B group vitamins (principal); E55.9 Vitamin D deficiency, unspecified; E29.1 Testicular hypofunction; Z12.5 Encounter for screening for malignant neoplasm of prostate; I10 Essential (primary) hypertension; E11.9 Type 2 diabetes mellitus without complications | CPT/HCPCS: 82306; 82607; 84403; G0103 ==

== ENCOUNTER → 2019-12-29 | Outpatient (CLI) | payer MEDICARE, OTHER ==
--- NOTE | 2019-12-29 17:51 | CT ---
EXAM DESCRIPTION: Chest w/Contrast CLINICAL HISTORY: 79 years Male, ABNORMAL FINDING OF LUNG FIELD COMPARISON: Chest x-ray dated 28 October 2019 TECHNIQUE: Transaxial images were obtained with intravenous contrast media. Sagittal and coronal reconstruction was performed.This exam was performed according to our departmental dose-optimization program, which includes automated exposure control, adjustment of the mA and/or kV according to patient size and/or use of iterative reconstruction technique. FINDINGS: The thyroid is normal in appearance. No pathologic axillary adenopathy is observed. No hilar or mediastinal adenopathy is seen. No pleural fluid is detected. A small hiatus hernia is noted. No adrenal masses are detected. The patient is postcholecystectomy. No lung parenchymal abnormality is detected. Some coronary artery calcification is observed. Degenerative changes are observed in the thoracic spine. IMPRESSION: 1. Small hiatus hernia. 2. No evidence of a lung mass nodule or infiltrate is detected. Electronically signed by: Hermelindo Jain MD 12/29/2019 5:50 PM CDT
== END ==
LOC: CT 09:30
PROVIDERS: ATTEND Family Medicine
DX: R91.8 Other nonspecific abnormal finding of lung field (principal); K44.9 Diaphragmatic hernia without obstruction or gangrene